=== PATIENT | female | born 1990 | race African-American/Black ===

== ENCOUNTER 2017-01-26 11:11 | Emergency (ER) | payer OTHER ==
[2017-01-26 11:22] VITALS: BP 150/100; BMI 41.3
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
[2017-01-26] MEDS ORDERED: TORADOL 60 MG VIAL ONE (12:29)
[2017-01-26] MEDS: TORADOL 60 MG VIAL IM ONE (12:34)
--- NOTE | 2017-01-26 12:39 | RAD ---
HISTORY: 27-year-old female with pain in the right wrist. Study: Three views right wrist Comparison: Radiographs of the right hand July 20, 2013. Findings: No evidence for acute cortical disruption or dislocation can be identified. The carpal bones appear well aligned. The visualized portions of the distal radius and ulna are unremarkable. No signific ant soft tissue abnormality can be identified. IMPRESSION: 1. Negative exam. Reported By:
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
== END 2017-01-26 13:01 | disposition home or self-care (01) ==
LOC: ER 11:11
DX: S39.012A Strain of muscle, fascia and tendon of lower back, initial encounter (principal); S63.501A Unspecified sprain of right wrist, initial encounter; S16.1XXA Strain of muscle, fascia and tendon at neck level, initial encounter; V87.7XXA Person injured in collision between other specified motor vehicles (traffic), initial encounter
CPT/HCPCS: 72125; 72131; 73100; 96372; 99282; 99283; J1885